=== PATIENT | male | born 1945 | race Caucasian/White ===

== ENCOUNTER → 2017-11-14 | Outpatient (CLI) | payer MEDICARE ==
[~2017-11-14] MED LIST: AMLO5 PO; Aspirin EC81 MG PO; CEPH500 PO; CHOL10002 PO; FINA5 PO; HYDR1TAB94 PO; Hair, Skin & N1 EACH PO; Humalog100 UNIT/1; INLYTA5 MG PO; INSDET100 SC; INSUASPI SC; LIDO2TG30 TOP; LISI20 PO; Lovastatin20 MG PO; METTREX2.5 PO; Novolog Fl100 UNIT/1; Novolog Fl100 UNIT/1 SC; OMEPRAZOLE MAGN20 MG PO; ONDA8 PO; OSTEO BI-FLEX1 EAC2 PO; OXYC5 PO; PANT40 PO; ROPI.25 PO; SERT50 PO; STOOL SOFTENER1 EAC2 PO; Super B-50 Com1 EAC1 PO; Sutent50 MG PO; VITAMIN D-32000 UNIT PO
[2017-11-17 14:38] LABS: Stool Occult Bld Immuno 1 Negative (NEGATIVE); Stool Occult Bld Immuno 2 Negative (NEGATIVE); Stool Occult Bld Immuno 3 Negative (NEGATIVE)
== END ==
LOC: OLS 08:35 → LAB SHORT 08:35 → LAB FUT 11-11 12:20 → EDSTATUS 11-11 12:20
PROVIDERS: Nurse Practitioner Family
DX: Z12.11 Encounter for screening for malignant neoplasm of colon (principal); R53.83 Other fatigue
CPT/HCPCS: 82274

== ENCOUNTER 2018-01-09 10:10 | Inpatient (IN) | payer MEDICARE, BC ==
[~2018-01-09] VITALS: Ht 182.9 cm; Wt 86.0 kg
[~2018-01-09 10:10] MED LIST changes: -Humalog100 UNIT/1; -PANT40 PO; -ROPI.25 PO; -SERT50 PO
[2018-01-09] MEDS ORDERED: SERT50 PO (10:34)
[2018-01-09 10:52] LABS: Mean Corpuscular HGB 28.5 pg (26.0-34.0); Mean Corpuscular HGB Conc 31.1 g/dL (31.5-36.5); Mean Corpuscular Volume 92 fL (80-100); Mean Platelet Volume 11.8 fL (9.1-12.4); NRBC ABSOLUTE 0.06 K/mm3 (0.00-0.02); NRBC Auto 0.4 /100 WBC (0.0-0.2); Platelet Count 238 K/mm3 (150-400); RDW Coefficient Variation 13.8 % (11.7-14.2); RDW Standard Deviation 43.4 fL (35.1-46.3); Red Blood Cell Count 1.79 M/mm3 (4.30-5.90); White Blood Cell Count 14.92 K/mm3 (4.00-11.30)
[2018-01-09 10:56] LABS: Hematocrit 16.4 % (37.0-53.0); Hemoglobin 5.1 g/dL (13.5-17.5)
[2018-01-09 11:11] LABS: BASOPHILS PERCENT MAN 0 % (0-2); EOSINOPHILS ABSOLUTE MAN 1.34 K/mm3 (0.00-0.68); EOSINOPHILS PERCENT MAN 9 % (0-6); International Normalized Ratio 0.97; LYMPHOCYTES ABSOLUTE MAN 3.13 K/mm3 (0.84-5.20); LYMPHOCYTES PERCENT MAN 21 % (21-46); METAMYELOCYTE ABSOLUTE MAN 0.29 K/mm3 (0.00-0.00); METAMYELOCYTE PERCENT MAN 2 % (0-0); MONOCYTES ABSOLUTE MAN 0.29 K/mm3 (0.16-1.47); MONOCYTES PERCENT MAN 2 % (4-13); NEUTROPHILS ABSOLUTE MAN 9.84 K/mm3 (1.96-9.15); Prothrombin Time Results 10.1 Sec (9.7-11.5); SEG NEUTROPHILS PERCENT MAN 66 % (41-73); TOTAL CELLS COUNTED 100
[2018-01-09 11:14] LABS: Alanine Aminotransfer (ALT/SGP 17 U/L (12-78); Albumin, Blood 2.5 g/dL (3.4-5.0); Albumin/Globulin Ratio 0.8 (0.8-1.8); Alk Phos 42 U/L (50-136); Anion Gap 9 mmol/L (6-16); Aspartate Aminotrans (AST/SGOT 10 U/L (12-37); Bilirubin, Total 0.1 mg/dL (0.1-1.0); Blood Urea Nitrogen 46 mg/dL (8-24); Bun/Creatinine Ratio 35.9 (12.0-20.0); CO2, Blood 19 mmol/L (21-32); Calcium, Blood 7.9 mg/dL (8.5-10.1); Chloride, Blood 108 mmol/L (98-108); Creatinine, Blood 1.28 mg/dL (0.60-1.20); Globulin, Blood 3.1 g/dL (2.2-4.0); Glomerular Filtration Rate 59 (60-); Glucose, Blood 330 mg/dL (70-99); Sodium, Blood 136 mmol/L (136-145); Total Protein, Blood 5.6 g/dL (6.4-8.2); Troponin I <0.015 ng/mL (0.000-0.040)
[2018-01-09] MEDS ORDERED: Humalog100 UNIT/1 (13:33)
[2018-01-09 19:29] LABS: Hematocrit 18.9 % (37.0-53.0); Hemoglobin 6.3 g/dL (13.5-17.5)
[2018-01-10 05:19] LABS: Hematocrit 23.7 % (37.0-53.0); Hemoglobin 8.1 g/dL (13.5-17.5); Mean Corpuscular HGB 28.6 pg (26.0-34.0); Mean Corpuscular HGB Conc 34.2 g/dL (31.5-36.5); Mean Platelet Volume 11.3 fL (9.1-12.4); NRBC ABSOLUTE 0.04 K/mm3 (0.00-0.02); NRBC Auto 0.3 /100 WBC (0.0-0.2); Platelet Count 201 K/mm3 (150-400); RDW Coefficient Variation 14.8 % (11.7-14.2); RDW Standard Deviation 41.9 fL (35.1-46.3); Red Blood Cell Count 2.83 M/mm3 (4.30-5.90)
[2018-01-10 05:24] LABS: Mean Corpuscular Volume 84 fL (80-100)
[2018-01-10 05:41] LABS: BAND PERCENT MAN 2 % (0-8); BASOPHILS PERCENT MAN 0 % (0-2); EOSINOPHILS ABSOLUTE MAN 0.54 K/mm3 (0.00-0.68); EOSINOPHILS PERCENT MAN 4 % (0-6); LYMPHOCYTES PERCENT MAN 14 % (21-46); METAMYELOCYTE ABSOLUTE MAN 0.13 K/mm3 (0.00-0.00); METAMYELOCYTE PERCENT MAN 1 % (0-0); MONOCYTES ABSOLUTE MAN 0.54 K/mm3 (0.16-1.47); MONOCYTES PERCENT MAN 4 % (4-13); MYELOCYTE ABSOLUTE MAN 0.13 K/mm3 (0.00-0.00); MYELOCYTE PERCENT MAN 1 % (0-0); NEUTROPHILS ABSOLUTE MAN 10.33 K/mm3 (1.96-9.15); SEG NEUTROPHILS PERCENT MAN 74 % (41-73); TOTAL CELLS COUNTED 100
[2018-01-10 05:45] LABS: Albumin, Blood 2.5 g/dL (3.4-5.0); Albumin/Globulin Ratio 0.8 (0.8-1.8); Bilirubin, Total 1.6 mg/dL (0.1-1.0); Bun/Creatinine Ratio 21.2 (12.0-20.0); Calcium, Blood 7.6 mg/dL (8.5-10.1); Creatinine, Blood 1.37 mg/dL (0.60-1.20); Potassium, Blood 3.5 mmol/L (3.5-5.5); Total Protein, Blood 5.5 g/dL (6.4-8.2)
[2018-01-11 05:01] LABS: Hematocrit 25.2 % (37.0-53.0); Hemoglobin 8.3 g/dL (13.5-17.5)
[2018-01-11] MEDS ORDERED: ROPI.25 PO (12:27)
[2018-01-11] MEDS ORDERED: PANT40 PO (12:36)
== END 2018-01-11 13:14 | disposition home or self-care (01) | DRG 378 ==
LOC: ER 10:10 → PCU 11:57 → MEDS 11:57 → PCU 13:16 → MEDS 01-10 18:00
PROVIDERS: Emergency Medicine; Internal Medicine; Internal Medicine Gastroenterology
PROC: 30233N1 Transfusion of Nonautologous Red Blood Cells into Peripheral Vein, Percutaneous Approach (ICD-10-PCS; 2018-01-09)
PROC: 0W3P8ZZ Control Bleeding in Gastrointestinal Tract, Via Natural or Artificial Opening Endoscopic (ICD-10-PCS; principal; 2018-01-10 10:00)
DX: K26.4 Chronic or unspecified duodenal ulcer with hemorrhage (principal); C64.9 Malignant neoplasm of unspecified kidney, except renal pelvis; C78.00 Secondary malignant neoplasm of unspecified lung; D50.0 Iron deficiency anemia secondary to blood loss (chronic); I12.9 Hypertensive chronic kidney disease with stage 1 through stage 4 chronic kidney disease, or unspecified chronic kidney disease; N18.3 Chronic kidney disease, stage 3 (moderate); K29.80 Duodenitis without bleeding; K29.60 Other gastritis without bleeding; K20.9 Esophagitis, unspecified; E11.22 Type 2 diabetes mellitus with diabetic chronic kidney disease
CPT/HCPCS: 36415; 36430; 71046; 80053; 81000; 82272; 82947; 83690; 84484; 85014; 85018; 85025; 85610; 85730; 86850; 86900; 86901; 86920; 93005; 93010; 96374; 99285; C9113; J1815; J1940; J7030; J7120; P9016

== ENCOUNTER → 2018-03-24 | Outpatient (CLI) | payer MEDICARE, BC ==
[~2018-03-24] MED LIST changes: +Humalog100 UNIT/1; +PANT40 PO; +ROPI.25 PO; +SERT50 PO
[2018-03-24 11:04] LABS: BASOPHILS ABSOLUTE AUTO 0.06 K/mm3 (0.00-0.23); BASOPHILS PERCENT AUTO 1 % (0-2); EOSINOPHILS ABSOLUTE AUTO 0.62 K/mm3 (0.00-0.68); EOSINOPHILS PERCENT AUTO 8 % (0-6); Hematocrit 40.4 % (37.0-53.0); IMMATURE GRAN ABSOLUTE AUTO 0.06 K/mm3 (0.00-0.10); IMMATURE GRAN PERCENT AUTO 1 % (0-1); LYMPHOCYTES ABSOLUTE AUTO 1.62 K/mm3 (0.84-5.20); LYMPHOCYTES PERCENT AUTO 22 % (21-46); MONOCYTES ABSOLUTE AUTO 0.85 K/mm3 (0.16-1.47); MONOCYTES PERCENT AUTO 11 % (4-13); Mean Corpuscular HGB 27.4 pg (26.0-34.0); Mean Corpuscular HGB Conc 32.2 g/dL (31.5-36.5); Mean Corpuscular Volume 85 fL (80-100); Mean Platelet Volume 11.3 fL (9.1-12.4); NEUTROPHILS ABSOLUTE AUTO 4.25 K/mm3 (1.96-9.15); NEUTROPHILS PERCENT AUTO 57 % (41-73); Platelet Count 229 K/mm3 (150-400); RDW Coefficient Variation 13.2 % (11.7-14.2); RDW Standard Deviation 41.1 fL (35.1-46.3); Red Blood Cell Count 4.75 M/mm3 (4.30-5.90); White Blood Cell Count 7.46 K/mm3 (4.00-11.30)
[2018-03-24 11:16] LABS: Alanine Aminotransfer (ALT/SGP 23 U/L (12-78); Albumin, Blood 3.5 g/dL (3.4-5.0); Albumin/Globulin Ratio 0.8 (0.8-1.8); Alk Phos 56 U/L (50-136); Anion Gap 8 mmol/L (6-16); Aspartate Aminotrans (AST/SGOT 15 U/L (12-37); Bilirubin, Total 0.4 mg/dL (0.1-1.0); Blood Urea Nitrogen 21 mg/dL (8-24); Bun/Creatinine Ratio 17.5 (12.0-20.0); CO2, Blood 26 mmol/L (21-32); Calcium, Blood 8.9 mg/dL (8.5-10.1); Chloride, Blood 104 mmol/L (98-108); Globulin, Blood 4.3 g/dL (2.2-4.0); Glomerular Filtration Rate >60 (60-); Glucose, Blood 242 mg/dL (70-99); Sodium, Blood 138 mmol/L (136-145); Total Protein, Blood 7.8 g/dL (6.4-8.2)
== END | disposition home or self-care (01) ==
LOC: LAB SHORT 10:44 → LAB 10:44
PROVIDERS: Internal Medicine Hematology & Oncology
DX: C64.2 Malignant neoplasm of left kidney, except renal pelvis (principal); C78.02 Secondary malignant neoplasm of left lung; C78.01 Secondary malignant neoplasm of right lung; C77.5 Secondary and unspecified malignant neoplasm of intrapelvic lymph nodes; N17.9 Acute kidney failure, unspecified
CPT/HCPCS: 80053; 85025

== ENCOUNTER 2018-12-24 14:57 | Emergency (ER) | payer MEDICARE, OTHER ==
[~2018-12-24] VITALS: Ht 182.9 cm; Wt 90.7 kg
[2018-12-24 16:49] LABS: BASOPHILS ABSOLUTE AUTO 0.06 K/mm3 (0.00-0.23); BASOPHILS PERCENT AUTO 1 % (0-2); EOSINOPHILS ABSOLUTE AUTO 0.67 K/mm3 (0.00-0.68); EOSINOPHILS PERCENT AUTO 7 % (0-6); Hematocrit 42.3 % (37.0-53.0); Hemoglobin 13.4 g/dL (13.5-17.5); IMMATURE GRAN ABSOLUTE AUTO 0.03 K/mm3 (0.00-0.10); IMMATURE GRAN PERCENT AUTO 0 % (0-1); LYMPHOCYTES ABSOLUTE AUTO 1.79 K/mm3 (0.84-5.20); LYMPHOCYTES PERCENT AUTO 18 % (21-46); MONOCYTES ABSOLUTE AUTO 0.95 K/mm3 (0.16-1.47); MONOCYTES PERCENT AUTO 10 % (4-13); Mean Corpuscular HGB 27.3 pg (26.0-34.0); Mean Corpuscular HGB Conc 31.7 g/dL (31.5-36.5); Mean Corpuscular Volume 86 fL (80-100); NEUTROPHILS ABSOLUTE AUTO 6.34 K/mm3 (1.96-9.15); NEUTROPHILS PERCENT AUTO 64 % (41-73); Platelet Count 275 K/mm3 (150-400); Red Blood Cell Count 4.91 M/mm3 (4.30-5.90); White Blood Cell Count 9.84 K/mm3 (4.00-11.30)
[2018-12-24 17:23] LABS: Albumin, Blood 3.8 g/dL (3.4-5.0); Albumin/Globulin Ratio 0.8 (0.8-1.8); Bilirubin, Total 0.3 mg/dL (0.1-1.0); Bun/Creatinine Ratio 19.3 (12.0-20.0); Calcium, Blood 8.9 mg/dL (8.5-10.1); Creatinine, Blood 1.35 mg/dL (0.60-1.20); Globulin, Blood 4.6 g/dL (2.2-4.0); Potassium, Blood 3.9 mmol/L (3.5-5.5); Total Protein, Blood 8.4 g/dL (6.4-8.2)
[2018-12-24] MEDS ORDERED: Ferrous Sulfat325 M2 PO (20:48)
[2018-12-24] MEDS ORDERED: TURMERIC500 M2 (20:50)
== END 2018-12-24 21:36 | disposition home or self-care (01) ==
LOC: ER 14:57
PROVIDERS: Physician Assistant
DX: C78.02 Secondary malignant neoplasm of left lung (principal); C78.01 Secondary malignant neoplasm of right lung; Z85.53 Personal history of malignant neoplasm of renal pelvis; Z88.1 Allergy status to other antibiotic agents; Z79.899 Other long term (current) drug therapy; Z79.4 Long term (current) use of insulin; E10.9 Type 1 diabetes mellitus without complications; Z87.891 Personal history of nicotine dependence
CPT/HCPCS: 36415; 71046; 80053; 82272; 85025; 99283-25

== ENCOUNTER → 2019-02-25 | Outpatient (CLI) | payer MEDICARE, OTHER ==
[~2019-02-25] MED LIST changes: +Ferrous Sulfat325 M2 PO; +TURMERIC500 M2
[2019-02-25 16:05] LABS: BASOPHILS ABSOLUTE AUTO 0.06 K/mm3 (0.00-0.23); BASOPHILS PERCENT AUTO 1 % (0-2); EOSINOPHILS ABSOLUTE AUTO 0.84 K/mm3 (0.00-0.68); EOSINOPHILS PERCENT AUTO 8 % (0-6); Hematocrit 40.3 % (37.0-53.0); Hemoglobin 13.4 g/dL (13.5-17.5); IMMATURE GRAN ABSOLUTE AUTO 0.08 K/mm3 (0.00-0.10); IMMATURE GRAN PERCENT AUTO 1 % (0-1); LYMPHOCYTES ABSOLUTE AUTO 1.74 K/mm3 (0.84-5.20); LYMPHOCYTES PERCENT AUTO 16 % (21-46); MONOCYTES ABSOLUTE AUTO 1.07 K/mm3 (0.16-1.47); MONOCYTES PERCENT AUTO 10 % (4-13); Mean Corpuscular HGB 27.1 pg (26.0-34.0); Mean Corpuscular HGB Conc 33.3 g/dL (31.5-36.5); Mean Corpuscular Volume 82 fL (80-100); Mean Platelet Volume 10.2 fL (9.1-12.4); NEUTROPHILS ABSOLUTE AUTO 7.23 K/mm3 (1.96-9.15); NEUTROPHILS PERCENT AUTO 66 % (41-73); Platelet Count 404 K/mm3 (150-400); RDW Coefficient Variation 12.9 % (11.7-14.2); RDW Standard Deviation 38.3 fL (35.1-46.3); Red Blood Cell Count 4.94 M/mm3 (4.30-5.90); White Blood Cell Count 11.02 K/mm3 (4.00-11.30)
[2019-02-25 16:26] LABS: Alanine Aminotransfer (ALT/SGP 17 U/L (12-78); Albumin, Blood 2.9 g/dL (3.4-5.0); Albumin/Globulin Ratio 0.5 (0.8-1.8); Alk Phos 82 U/L (40-126); Anion Gap 9 mmol/L (6-16); Aspartate Aminotrans (AST/SGOT 15 U/L (12-37); Bilirubin, Total 0.2 mg/dL (0.1-1.0); Blood Urea Nitrogen 28 mg/dL (8-24); Bun/Creatinine Ratio 16.9 (12.0-20.0); CO2, Blood 26 mmol/L (21-32); Calcium, Blood 9.3 mg/dL (8.5-10.1); Chloride, Blood 99 mmol/L (98-108); Creatinine, Blood 1.66 mg/dL (0.60-1.20); Globulin, Blood 5.3 g/dL (2.2-4.0); Glomerular Filtration Rate 41 (60-); Glucose, Blood 217 mg/dL (70-99); Potassium, Blood 3.8 mmol/L (3.5-5.5); Sodium, Blood 134 mmol/L (136-145); Total Protein, Blood 8.2 g/dL (6.4-8.2)
[2019-02-25 16:29] LABS: Troponin I <0.017 ng/mL (0.000-0.040)
== END | disposition home or self-care (01) ==
LOC: LAB EV 15:59 → LAB SHORT 15:59
PROVIDERS: Physician Assistant
DX: R07.9 Chest pain, unspecified (principal)
CPT/HCPCS: 80053; 84484; 85025

== ENCOUNTER 2019-05-22 15:40 | Inpatient (IN) | payer MEDICARE, OTHER ==
[~2019-05-22] VITALS: Ht 182.9 cm; Wt 88.0 kg
[~2019-05-22 15:40] MED LIST changes: -Humalog100 UNIT/1; +Humalog100 UNIT/1 INJ
[2019-05-22 16:06] LABS: Hematocrit 38.9 % (37.0-53.0); Hemoglobin 12.6 g/dL (13.5-17.5); Mean Corpuscular HGB 27.7 pg (26.0-34.0); Mean Corpuscular HGB Conc 32.4 g/dL (31.5-36.5); Mean Corpuscular Volume 86 fL (80-100); Mean Platelet Volume 10.4 fL (9.1-12.4); Platelet Count 250 K/mm3 (150-400); RDW Standard Deviation 61.4 fL (35.1-46.3); Red Blood Cell Count 4.55 M/mm3 (4.30-5.90); White Blood Cell Count 11.34 K/mm3 (4.00-11.30)
[2019-05-22 16:25] LABS: BAND PERCENT MAN 1 % (0-8); BASOPHILS PERCENT MAN 0 % (0-2); EOSINOPHILS ABSOLUTE MAN 0.11 K/mm3 (0.00-0.68); EOSINOPHILS PERCENT MAN 1 % (0-6); LYMPHOCYTES ABSOLUTE MAN 4.19 K/mm3 (0.84-5.20); LYMPHOCYTES PERCENT MAN 37 % (21-46); METAMYELOCYTE ABSOLUTE MAN 0.68 K/mm3 (0.00-0.00); METAMYELOCYTE PERCENT MAN 6 % (0-0); MONOCYTES ABSOLUTE MAN 0.68 K/mm3 (0.16-1.47); MONOCYTES PERCENT MAN 6 % (4-13); MYELOCYTE ABSOLUTE MAN 0.11 K/mm3 (0.00-0.00); MYELOCYTE PERCENT MAN 1 % (0-0); NEUTROPHILS ABSOLUTE MAN 5.55 K/mm3 (1.96-9.15); SEG NEUTROPHILS PERCENT MAN 48 % (41-73); TOTAL CELLS COUNTED 100
[2019-05-22 16:28] LABS: Alanine Aminotransfer (ALT/SGP 47 U/L (12-78); Albumin, Blood 3.3 g/dL (3.4-5.0); Albumin/Globulin Ratio 0.9 (0.8-1.8); Alk Phos 49 U/L (50-136); Anion Gap 8 mmol/L (6-16); Aspartate Aminotrans (AST/SGOT 31 U/L (12-37); Bilirubin, Total 0.4 mg/dL (0.1-1.0); Blood Urea Nitrogen 30 mg/dL (8-24); Bun/Creatinine Ratio 19.9 (12.0-20.0); CO2, Blood 23 mmol/L (21-32); Calcium, Blood 8.9 mg/dL (8.5-10.1); Chloride, Blood 108 mmol/L (98-108); Creatinine, Blood 1.51 mg/dL (0.60-1.20); Ethanol (Alcohol), Blood, Med <3 mg/dL; Globulin, Blood 3.7 g/dL (2.2-4.0); Glomerular Filtration Rate 49 (60-); Glucose, Blood 109 mg/dL (70-99); Potassium, Blood 4.1 mmol/L (3.5-5.5); Sodium, Blood 139 mmol/L (136-145)
[2019-05-22] MEDS ORDERED: PRED20 PO (17:22)
[2019-05-22] MEDS ORDERED: Zantac150 MG PO (17:23)
[2019-05-22] MEDS ORDERED: Lisinopril2.5 MG PO (17:23)
[2019-05-23 00:02] LABS: U Amphetamine Screen Not Detected; U Barbituate Screen Not Detected; U Benzodiazapine Screen Not Detected; U Buprenorphine Screen Not Detected; U Cannabinoids Screen Not Detected; U Cocaine Screen Not Detected; U Methadone Screen Not Detected; U Methamphetamine Screen Not Detected; U Opiates Screen DETECTED; U Oxycodone Screen Not Detected; U Phencyclidine Screen Not Detected; U Propoxyphene Screen Not Detected
--- NOTE | 2019-05-23 04:02 | NUR ---
BLOOD SUGAR OF 312 AND TRENDING DOWN PER PT'S OWN BLOOD SUGAR MACHINE. NO INSULIN GIVEN AT THIS TIME. PT NPO. RESTING COMFORTABLY IN BED. CALL LIGHT IN REACH.
--- NOTE | 2019-05-23 04:37 | NUR ---
SHIFT SUMMARY PT NEW ADMIT YESTARDAY EVENING. AAOX4. DISCOMFORT MINIMIZED WITH 50mcg FENTANYL Q3-4P. NO NAUSEA/EMESIS. RIGHT LEG PPP, DENIES N/T, MOVES TOES WELL BLE. ABRASION TO RIGHT EYE BROWN SUTURED IN ED, ABRASION TO RIGHT ELBOW WITH NON-ADHERENT DRESSINGS WITH GAUZE + KERLEX IN PLACE CHANGED X2 R/T DRAINAGE. ELEVATED BLOOD SUGAR NOTED T/O NIGHT. PT HAS OWN INSULIN PUMP + CHEMBG CHECKS, DR AWARE + OKAY WITH PT MANAGING OWN SUGAR. INSULIN PUMP DEPLETED THIS AM, NOTIFIED + ORDERS TO COVER USING PT'S OWN CHEMBG MACHINE WITH INSULIN PEN. SEE INSULIN DOCUMENTATION. PT RESTED INTERMITTENTLY THIS AM. PT ORIENTED TO CALL LIGHT USE + DEMONSTRATED USE.
[2019-05-23 04:53] LABS: Hemoglobin 11.8 g/dL (13.5-17.5); Mean Corpuscular HGB 26.8 pg (26.0-34.0); Mean Corpuscular HGB Conc 31.9 g/dL (31.5-36.5); Mean Corpuscular Volume 84 fL (80-100); Mean Platelet Volume 10.2 fL (9.1-12.4); Platelet Count 185 K/mm3 (150-400); RDW Coefficient Variation 19.8 % (11.7-14.2); Red Blood Cell Count 4.41 M/mm3 (4.30-5.90); White Blood Cell Count 13.32 K/mm3 (4.00-11.30)
[2019-05-23 05:14] LABS: Bun/Creatinine Ratio 22.1 (12.0-20.0); Calcium, Blood 8.5 mg/dL (8.5-10.1); Creatinine, Blood 1.4 mg/dL (0.60-1.20); Potassium, Blood 4.5 mmol/L (3.5-5.5)
--- NOTE | 2019-05-23 12:08 | NUR ---
URINARY RETENTION DR. COMBS NOTFIED THAT PT IS UNABLE TO COMPLETELY EMPTY HIS BLADDER. PT VOIDED 150ML AND BLADDER SCAN SHOWED A RESIDUAL OF 620ML IN THE BLADDER. PT WAS NOTIFIED OF THE AMOUNT OF URINE IN HIS BLADDER AND OPTIONS TO EMPTY BLADDER. PT REFUSED STRAIGHT CATH AND BOJORQUEZ CATHETER DESPITE RECOMMENDATION FROM DR. COMBS. WILL CONTINUE TO MONITOR.
--- NOTE | 2019-05-23 13:33 | NUR ---
PT IS CONTINUING TO RETAIN URINE. THIS RN EDUCATED ABOUT RISKS OF BLADDER REMAINING FULL. PT REPORTED UNDERSTANDING RISKS AND CONTINUES TO REFUSE CATHETER. WILL CONTINUE TO MONITOR.
--- NOTE | 2019-05-23 14:47 | NUR ---
DR. RODGERS ROUNDED ON PT. PLAN FOR SURGERY TOMORROW.
[2019-05-23 17:46] LABS: Source, Urine Catheter
[2019-05-23 17:48] LABS: Bilirubin, Urine Neg (Neg); Blood, Urine 4+ (Neg); Glucose Qualitative, Urine 4+ (Neg); Ketones, Urine 1+ (Neg); Leukocyte Esterase, Urine Neg (Neg); Nitrite, Urine Neg (Neg); Protein, Urine 2+ (Neg); Urobilinogen, Urine NORM (Normal)
--- NOTE | 2019-05-23 17:59 | NUR ---
SHIFT SUMMARY PAIN HAS BEEN MANAGED WITH FENTANYL THIS SHIFT. PLAN FOR SURGERY TOMORROW, PT WILL BE NPO AFTER MIDNIGHT. PT HAS RETAINED URINE THIS SHIFT AND AGREED TO A CATHETER THIS EVENING. VSS. WILL MONITOR UNTIL REPORT TO ONCOMING RN.
[2019-05-23 18:40] LABS: Appearance, Urine Clear (Clear); Color, Urine Yellow (P-Yellow)
[2019-05-23 18:41] LABS: Amorphous Light (0-Heavy); Bacteria Few /hpf; Squamous Epithelial Cells Not Seen /hpf (Few); White Blood Cells, Urine 0-2 /hpf (0-5)
[2019-05-24 04:52] LABS: Hematocrit 37.6 % (37.0-53.0); Hemoglobin 11.9 g/dL (13.5-17.5); Mean Corpuscular HGB 27.1 pg (26.0-34.0); Mean Corpuscular HGB Conc 31.6 g/dL (31.5-36.5); Mean Corpuscular Volume 86 fL (80-100); Platelet Count 170 K/mm3 (150-400); RDW Coefficient Variation 19.2 % (11.7-14.2); Red Blood Cell Count 4.39 M/mm3 (4.30-5.90); White Blood Cell Count 12.72 K/mm3 (4.00-11.30)
[2019-05-24 05:05] LABS: International Normalized Ratio 1.08; Prothrombin Time Results 11.4 Sec (9.7-11.5)
[2019-05-24 05:07] LABS: Anion Gap 9 mmol/L (6-16); Blood Urea Nitrogen 30 mg/dL (8-24); Bun/Creatinine Ratio 24.6 (12.0-20.0); CO2, Blood 23 mmol/L (21-32); Calcium, Blood 8.4 mg/dL (8.5-10.1); Chloride, Blood 102 mmol/L (98-108); Creatinine, Blood 1.22 mg/dL (0.60-1.20); Glomerular Filtration Rate >60 (60-); Glucose, Blood 255 mg/dL (70-99); Potassium, Blood 4.2 mmol/L (3.5-5.5); Sodium, Blood 134 mmol/L (136-145)
--- NOTE | 2019-05-24 06:36 | NUR ---
SHIFT SUMMARY HAS BEEN RESTING THROUGHOUT SHIFT. BECAME UPSET WHEN TAKEN TO X-RAY, AND THEN AGAIN TO CT THIS SHIFT. MEDICATED FOR PAIN X3 THIS SHIFT, TOLERATING WELL. REITERATED USE OF CALL AMBROSE WITH NEEDS, VOICES UNDERSTANDING. SAFETY MEASURES IN PLACE. WILL GIVE HAND OFF TO ONCOMING SHIFT USING SBAR.
--- NOTE | 2019-05-24 07:43 | NUR ---
PT CHECKED OWN GLUCOSE MONITOR READ 238. NO INSULIN BOLUS GIVEN AT THIS TIME. CARB COUNTING AND PT IS NPO. PT STABLE
--- NOTE | 2019-05-24 10:15 | NUR ---
PER DR. COMBS PT CHECKED GLUCOSE ABOUT 1005 AND READING WAS 233, BOLUS OF 2 UNITS GIVEN THROUGH PT INSULIN PUMP. ORDER TO HAVE PT CHECK GLUCOSE Q2 HRS. WILL CTM.
--- NOTE | 2019-05-24 12:57 | NUR ---
PT GLUCOSE AT 1206 IS 213, WILL MAKE MASTER FIRE CONTROL TECHNICIAN AWARE. PLAN IS FOR SURGERY AT 1315.
--- NOTE | 2019-05-24 13:07 | NUR ---
DR. COMBS MADE AWARE OF PT BLOOD GLUCOSE OF 213. PT LEFT UNIT FOR OR AT 1308.
--- NOTE | 2019-05-24 13:12 | NUR ---
BROUGHT TO [facility] ADMISSION TO UNIT STARTED BLOOD SUGAR DONE 212 WITH PATIENTS MACHINE
--- NOTE | 2019-05-24 15:05 | NUR ---
05/24/19 1505 Ellis Albert PATIENT ARRIVED TO OR WITH BOJORQUEZ CATH IN PLACE. OK TO D/C PER DR. STARKEY END OF CASE.
--- NOTE | 2019-05-24 17:52 | NUR ---
"BUILDING ESTIMATOR | DISCHARGE Report to Alida FERNANDEZ. A/O. On 2 L NC to keep sats appropiate. Other VSS. Site C/D/I. Kamran gan, ELYS, polar pack in place. Xrays done. Denies pain and nausea. Tolerating PO ice chips. OR dc'ed Link in OR. Bladder scanned patient with 30 mL showing on scanner. Advised Alida FERNANDEZ to rescan per her nursing judgement. Post-op sugar relayed to Dr. Bolaños. Dr. Bolaños denied need to treat blood sugar. No issues. Taken to floor via bed by this RN. All questions answered to best knowlede."
--- NOTE | 2019-05-24 19:17 | NUR ---
PT TOOK OWN BLOOD GLUCOSE AT 1911, BOOD SUGAR READ 268. PT CARB COUNTED DINNER (50 CARBS) AND GAVE SELF 5.7 UNITS THROUGH INSULIN PUMP. WILL MAKE NOC RN AWARE.
--- NOTE | 2019-05-24 19:20 | NUR ---
POST OP: REPORT RECIEVED FROM COMMUNICATIONS BILLING ANALYSTOMID FERNANDEZ. PT BACK TO SURGICAL UNIT AT ABOUT 1748. UPON ASSESSMENT PT IS IN NO VISABLE DISTRESS. A/O, VSS. PT DENIES PAIN. SURGICAL SITE WNL. PT ABLE TO EAT AND DRINK, NO N/V. NO VOID AT THIS TIME, BLADDER SCAN SHOWED 22ML. REGULAR TRAY ORDERED FOR DINNER. WILL PASS REPORT TO TESSIE FERNANDEZ.
--- NOTE | 2019-05-24 21:09 | NUR ---
BGL 287, EATING JELLO, GIVING 5.075 UNITS GIVEN PER INSULIN PUMP WIZARD.
--- NOTE | 2019-05-25 | NUR ---
BEDTIME SNACK OF 60 CARBS AND BGL 236, CALCULATION BY INSULIN PUMP WIZARD IS FOR 13.025 UNITS.
--- NOTE | 2019-05-25 04:00 | NUR ---
BGL 233
--- NOTE | 2019-05-25 06:07 | NUR ---
AMBULATED TO BATHROOM WITH MINIMAL ASSISTANCE USING FWW, TOLERATED WELL. HAS MADE ADEQUATE URINE THIS SHIFT. IVF SL AT THIS TIME. PRN PO PAIN MEDS ADMINISTERED X1 THIS SHIFT. DENIES FURTHER NEEDS AT THIS TIME. SAFETY MEASURES IN PLACE. WILL GIVE HAND OFF TO ONCOMING SHIFT USING SBAR.
--- NOTE | 2019-05-25 06:35 | NUR ---
SHIFT SUMMARY HAS BEEN RESTING THROUGHOUT SHIFT. AGAIN TO CT THIS SHIFT. MEDICATED FOR PAIN X3 THIS SHIFT, TOLERATING WELL. REITERATED USE OF CALL AMBROSE WITH NEEDS, VOICES UNDERSTANDING. SAFETY MEASURES IN PLACE. WILL GIVE HAND OFF TO ONCOMING SHIFT USING SBAR.
[2019-05-25 06:42] LABS: BASOPHILS ABSOLUTE AUTO 0.02 K/mm3 (0.00-0.23); BASOPHILS PERCENT AUTO 0 % (0-2); EOSINOPHILS ABSOLUTE AUTO 0.16 K/mm3 (0.00-0.68); EOSINOPHILS PERCENT AUTO 2 % (0-6); Hematocrit 30.6 % (37.0-53.0); Hemoglobin 9.5 g/dL (13.5-17.5); IMMATURE GRAN ABSOLUTE AUTO 0.12 K/mm3 (0.00-0.10); IMMATURE GRAN PERCENT AUTO 2 % (0-1); LYMPHOCYTES ABSOLUTE AUTO 1.07 K/mm3 (0.84-5.20); LYMPHOCYTES PERCENT AUTO 14 % (21-46); MONOCYTES PERCENT AUTO 8 % (4-13); Mean Corpuscular HGB 27.3 pg (26.0-34.0); Mean Corpuscular Volume 88 fL (80-100); Mean Platelet Volume 11.2 fL (9.1-12.4); NEUTROPHILS ABSOLUTE AUTO 5.92 K/mm3 (1.96-9.15); NEUTROPHILS PERCENT AUTO 75 % (41-73); Platelet Count 143 K/mm3 (150-400); RDW Coefficient Variation 19.1 % (11.7-14.2); RDW Standard Deviation 60.7 fL (35.1-46.3); Red Blood Cell Count 3.48 M/mm3 (4.30-5.90); White Blood Cell Count 7.89 K/mm3 (4.00-11.30)
[2019-05-25 06:53] LABS: Bun/Creatinine Ratio 23.4 (12.0-20.0); Calcium, Blood 7.8 mg/dL (8.5-10.1); Creatinine, Blood 1.75 mg/dL (0.60-1.20); Potassium, Blood 4.9 mmol/L (3.5-5.5)
--- NOTE | 2019-05-25 12:00 | NUR ---
blood sugar 237 patients carbspatient self administered 7 units insulin via insulin pump
--- NOTE | 2019-05-25 14:34 | NUR ---
0769 patient declines to wear elsie hose or pas patient educated on reasons that pas and elsie have been ordered for dvt prevention. patient continues to decline
--- NOTE | 2019-05-25 17:48 | NUR ---
SUMMARY PATIENT REPORTS PAIN CURRENTLY 2/10 DENIES NEED FOR PAIN MEDICATION. PATIENT DECLINES POLAR PACK TO RIGHT HIP, CONTINUES TO DECLINE PATRICIO HOSE AND PAS. DRESSING TO RIGHT ELBOW WITH SOME DARK SHADOWING BUT NO VISIBLE DRAINAGE. PATIENT STANDBY ASSIST OOB.
--- NOTE | 2019-05-26 09:37 | NUR ---
DR COMBS HERE TO SEE PT. PT ON 2LO2NC AT 94%, ON ROOM AIR PT 84%.COUGH DEEP BREATH ENCOURAGED, I/S GIVEN. PT DEMONSTRATES WELL. PT O2 BACK TO 2LO2NC 95%.
--- NOTE | 2019-05-26 15:19 | NUR ---
PT BEEN WORKING WITH THERAPY WITH O2 IN PLACE DURING WALK IN HALLWAY.
--- NOTE | 2019-05-26 16:57 | NUR ---
SHIFT SUMMARY PT EATING AND DRINKING, VOIDING. PASSING GAS. PT DID NOT HAVE BM TODAY BUT WISHED TO WAIT AND NOT HAVE MIRALAX TODAY COFFEE USUALLY WORKS FOR HIM. PT WORKED WITH THERAPY TODAY. PT BEEN USING I/S AND IS NOW ON RA. PT USING CALL LIGHT APPR. FAMILY IN/OUT OF ROOM TODAY.
[2019-05-27 04:27] LABS: BASOPHILS ABSOLUTE AUTO 0.02 K/mm3 (0.00-0.23); BASOPHILS PERCENT AUTO 0 % (0-2); EOSINOPHILS ABSOLUTE AUTO 0.18 K/mm3 (0.00-0.68); EOSINOPHILS PERCENT AUTO 2 % (0-6); Hematocrit 29.8 % (37.0-53.0); Hemoglobin 9.6 g/dL (13.5-17.5); IMMATURE GRAN ABSOLUTE AUTO 0.21 K/mm3 (0.00-0.10); IMMATURE GRAN PERCENT AUTO 2 % (0-1); LYMPHOCYTES ABSOLUTE AUTO 1.16 K/mm3 (0.84-5.20); LYMPHOCYTES PERCENT AUTO 12 % (21-46); MONOCYTES ABSOLUTE AUTO 0.77 K/mm3 (0.16-1.47); MONOCYTES PERCENT AUTO 8 % (4-13); Mean Corpuscular HGB Conc 32.2 g/dL (31.5-36.5); Mean Platelet Volume 10.9 fL (9.1-12.4); NEUTROPHILS ABSOLUTE AUTO 7.17 K/mm3 (1.96-9.15); NEUTROPHILS PERCENT AUTO 75 % (41-73); Platelet Count 186 K/mm3 (150-400); RDW Coefficient Variation 18.7 % (11.7-14.2); RDW Standard Deviation 56.9 fL (35.1-46.3); Red Blood Cell Count 3.56 M/mm3 (4.30-5.90); White Blood Cell Count 9.51 K/mm3 (4.00-11.30)
[2019-05-27 04:32] LABS: Mean Corpuscular Volume 84 fL (80-100)
[2019-05-27 04:49] LABS: Bun/Creatinine Ratio 25.4 (12.0-20.0); Calcium, Blood 8.6 mg/dL (8.5-10.1); Creatinine, Blood 1.34 mg/dL (0.60-1.20); Potassium, Blood 4.5 mmol/L (3.5-5.5)
[2019-05-27] MEDS ORDERED: HYDR1TAB94 PO (16:57)
[2019-05-27] MEDS ORDERED: ACET325 PO (16:59)
[2019-05-27] MEDS ORDERED: DOCU100 PO (16:59)
[2019-05-27] MEDS ORDERED: XARELTO15 MG PO (17:00)
--- NOTE | 2019-05-27 17:54 | NUR ---
PT D/C TO HOME WITH HIS VIA PRIVATE VEHICLE. D/C PAPERWORK & RX PROVIDED. PERSONAL BELONGINGS WERE SENT WITH THE PT. PT ENC TO F/U SARA FOR ANY PROBLEMS OR CONCERNS.
== END 2019-05-27 17:36 | disposition home health service (06) | DRG 956 ==
LOC: ER 15:40 → SURS 17:50
PROVIDERS: Emergency Medicine; Internal Medicine Endocrinology, Diabetes & Metabolism; Orthopaedic Surgery; ADMIT Internal Medicine
PROC: 0HQ1XZZ Repair Face Skin, External Approach (ICD-10-PCS; 2019-05-22)
PROC: 0HQDXZZ Repair Right Lower Arm Skin, External Approach (ICD-10-PCS; 2019-05-22)
PROC: 0SRR0J9 Replacement of Right Hip Joint, Femoral Surface with Synthetic Substitute, Cemented, Open Approach (ICD-10-PCS; principal; 2019-05-24 14:00)
DX: S72.001A Fracture of unspecified part of neck of right femur, initial encounter for closed fracture (principal); S32.591A Other specified fracture of right pubis, initial encounter for closed fracture; C64.2 Malignant neoplasm of left kidney, except renal pelvis; E27.49 Other adrenocortical insufficiency; S32.511A Fracture of superior rim of right pubis, initial encounter for closed fracture; D62 Acute posthemorrhagic anemia; W11.XXXA Fall on and from ladder, initial encounter; Y93.9 Activity, unspecified; Y92.008 Other place in unspecified non-institutional (private) residence as the place of occurrence of the external cause; Z79.4 Long term (current) use of insulin; Z90.79 Acquired absence of other genital organ(s); Z90.5 Acquired absence of kidney; Z87.891 Personal history of nicotine dependence; N18.3 Chronic kidney disease, stage 3 (moderate); E16.2 Hypoglycemia, unspecified; Z92.21 Personal history of antineoplastic chemotherapy; E10.22 Type 1 diabetes mellitus with diabetic chronic kidney disease; S01.111A Laceration without foreign body of right eyelid and periocular area, initial encounter; E10.42 Type 1 diabetes mellitus with diabetic polyneuropathy; K21.9 Gastro-esophageal reflux disease without esophagitis; E78.5 Hyperlipidemia, unspecified; F32.9 Major depressive disorder, single episode, unspecified; S51.011A Laceration without foreign body of right elbow, initial encounter; E66.3 Overweight; Z68.26 Body mass index [BMI] 26.0-26.9, adult; E10.65 Type 1 diabetes mellitus with hyperglycemia
CPT/HCPCS: 12002; 12011; 36415; 70450; 71045; 72170; 72192; 73080; 73502; 73552; 76377; 80048; 80053; 81001; 82947; 85025; 85027; 85610; 86850; 86900; 86901; 88305; 88311; 90471; 90714; 93005; 93010; 96374-59; 96375-59; 97110; 97116; 97161; 97165; 97530; 97535; 99285-25; A9270; A9270-GY; C1713; C1776; G0480; J0171; J0735; J1170; J1650; J1720; J1885; J2060; J2250; J2405; J2704; J2795; J3010; J7030; J7120; J7512; J7799

== ENCOUNTER 2019-06-03 10:02 | Day surgery (SDC) | payer MEDICARE, OTHER ==
[~2019-06-03 10:02] MED LIST changes: +ACET325 PO; +DOCU100 PO; +Lisinopril2.5 MG PO; +PRED20 PO; +XARELTO15 MG PO; +Zantac150 MG PO
--- NOTE | 2019-06-03 11:36 | NUR ---
FROM RADIOLOGY TO STEP AWAKE ORIENTED GIVEN JUICE AT THIS TIME
--- NOTE | 2019-06-03 13:53 | NUR ---
Patient up to Ambulate independently. Gait steady. Discharge instructions reviewed with patient. Patient verbalizes understanding. Copy given to patient to take home. Patient States Post-Procedure ride home has been arranged. Discharged via wheelchair to private car for ride home.
== END 2019-06-04 00:11 | disposition home or self-care (01) ==
LOC: CT 10:02
DX: C34.11 Malignant neoplasm of upper lobe, right bronchus or lung (principal); C64.2 Malignant neoplasm of left kidney, except renal pelvis; E11.9 Type 2 diabetes mellitus without complications; I10 Essential (primary) hypertension; E78.5 Hyperlipidemia, unspecified
CPT/HCPCS: 32405; 71045; 77012; 88305; 88341; 88342

== ENCOUNTER → 2019-06-13 | Outpatient (CLI) | payer MEDICARE, OTHER ==
[2019-06-13 11:47] LABS: Automated BF RBC Count 0.059 M/mm3 (0-0); Body Fluid WBC Count 1230 /mm3 (0-999); RBC Count, Body Fluid 59000 /mm3 (0-0)
[2019-06-13 12:41] LABS: Color, Body Fluid Amber (None-Yellow); Total Cell Count, Body Fluid 100
[2019-06-13 12:42] LABS: Appearance, Body Fluid Cloudy (Clear)
== END | disposition home or self-care (01) ==
LOC: LAB 10:47 → LAB SHORT 10:47
PROVIDERS: Orthopaedic Surgery
DX: S72.041A Displaced fracture of base of neck of right femur, initial encounter for closed fracture (principal)
CPT/HCPCS: 87070; 87075; 87205; 89051

== ENCOUNTER 2021-01-08 07:54 | Day surgery (SDC) | payer MEDICARE ==
[~2021-01-08] VITALS: Ht 182.9 cm; Wt 92.8 kg
[2021-01-08] MEDS ORDERED: CABOMETYX60 MG PO (08:31)
[2021-01-08] MEDS ORDERED: ZOLOFT50 MG PO (08:31)
--- NOTE | 2021-01-08 08:58 | NUR ---
01/08/[address] NOTIFIED OF 351 CBG. PT IS NORMALLY ON INDULIN PUMP BUT STOPPED IT FOR PROCEDURE YESTERDAY. PT VIRAL TREAT CBG OF 70 THIS AM WITH GLUCOSE. DR. DUONG OK TO PROCEED WITHOUT INTERVENTION.
--- NOTE | 2021-01-08 10:55 | NUR ---
01/08/21 1055 Cait Carpenter DISCUSSED DISCHARGE INSTRUCTIONS WITH PATIENT. ALL QUESTIONS ANSWERED. TOLERATING PO FLUIDS WELL. NO COMPLAINTS OF ABDOMINAL PAIN OR NAUSEA. VSS.
== END 2021-01-08 10:46 | disposition home or self-care (01) ==
LOC: ORSCSDS 07:54
PROVIDERS: Surgery
PROC: 0DJD8ZZ Inspection of Lower Intestinal Tract, Via Natural or Artificial Opening Endoscopic (ICD-10-PCS; principal; 2021-01-08 09:00)
DX: Z12.11 Encounter for screening for malignant neoplasm of colon (principal); Z86.010 Personal history of colon polyps; E11.9 Type 2 diabetes mellitus without complications; E78.5 Hyperlipidemia, unspecified; I10 Essential (primary) hypertension; Z87.891 Personal history of nicotine dependence; Z79.01 Long term (current) use of anticoagulants; Z79.4 Long term (current) use of insulin; Z79.899 Other long term (current) drug therapy
CPT/HCPCS: 82947; J2704; J7120

== ENCOUNTER 2021-06-29 19:07 | Inpatient (IN) | payer MEDICARE ==
[~2021-06-29] VITALS: Ht 182.9 cm; Wt 90.2 kg
[~2021-06-29 19:07] MED LIST changes: +CABOMETYX60 MG PO; +ZOLOFT50 MG PO
[2021-06-29 19:55] LABS: BASOPHILS ABSOLUTE AUTO 0.08 K/mm3 (0.00-0.23); BASOPHILS PERCENT AUTO 1 % (0-2); EOSINOPHILS ABSOLUTE AUTO 0.27 K/mm3 (0.00-0.68); EOSINOPHILS PERCENT AUTO 2 % (0-6); Hematocrit 49.6 % (37.0-53.0); Hemoglobin 15.9 g/dL (13.5-17.5); IMMATURE GRAN ABSOLUTE AUTO 0.08 K/mm3 (0.00-0.10); IMMATURE GRAN PERCENT AUTO 1 % (0-1); LYMPHOCYTES ABSOLUTE AUTO 2.75 K/mm3 (0.84-5.20); LYMPHOCYTES PERCENT AUTO 23 % (21-46); MONOCYTES ABSOLUTE AUTO 1.45 K/mm3 (0.16-1.47); MONOCYTES PERCENT AUTO 12 % (4-13); Mean Corpuscular HGB 26.3 pg (26.0-34.0); Mean Corpuscular HGB Conc 32.1 g/dL (31.5-36.5); Mean Corpuscular Volume 82 fL (80-100); Mean Platelet Volume 10.6 fL (9.1-12.4); NEUTROPHILS ABSOLUTE AUTO 7.41 K/mm3 (1.96-9.15); NEUTROPHILS PERCENT AUTO 62 % (41-73); Platelet Count 367 K/mm3 (150-400); Red Blood Cell Count 6.04 M/mm3 (4.30-5.90); White Blood Cell Count 12.04 K/mm3 (4.00-11.30)
[2021-06-29 20:20] LABS: Alanine Aminotransfer (ALT/SGP 19 U/L (12-78); Albumin, Blood 2.3 g/dL (3.4-5.0); Albumin/Globulin Ratio 0.5 (0.8-1.8); Alk Phos 82 U/L (50-136); Anion Gap 7 mmol/L (6-16); Aspartate Aminotrans (AST/SGOT 22 U/L (12-37); Bilirubin, Total 0.4 mg/dL (0.1-1.0); Blood Urea Nitrogen 18 mg/dL (8-24); Bun/Creatinine Ratio 14.2 (12.0-20.0); CO2, Blood 22 mmol/L (21-32); Chloride, Blood 104 mmol/L (98-108); Creatinine, Blood 1.27 mg/dL (0.60-1.20); Globulin, Blood 4.7 g/dL (2.2-4.0); Glomerular Filtration Rate 55 (60-); Glucose, Blood 224 mg/dL (70-99); Potassium, Blood 4.5 mmol/L (3.5-5.5); Sodium, Blood 133 mmol/L (136-145); Troponin I <0.015 ng/mL (0.000-0.040)
[2021-06-29 21:14] LABS: SARS-Cov-2 (COVID-19) PCR, MMC NEGATIVE (NEGATIVE)
[2021-06-30] MEDS ORDERED: XARELTO20 MG PO (02:02)
--- NOTE | 2021-06-30 04:35 | NUR ---
PATIENT NEWLY ADMITTED TO UNIT. 3 LITERS OF OXYGEN VIA NASAL CANNULA. HAS A SELF ADMINISTERING INSULIN PUMP. DEVICE THAT SELF CHECKS BG IS NOT OPERATING AT THIS TIME. BRUSHING MACHINE OPERATOR WILL CHECK WITH HOSPITAL GLUCOMTER. DENIES PAIN. DENIES NAUSEA. NO VISIBLE SIGNS OF ANY DISTRESS PRESENT. ALERT AND ORIENTED X4. STANDBY ASSISTANCE OUT OF BED WHEN NEEDED.
[2021-06-30 04:59] LABS: BASOPHILS ABSOLUTE AUTO 0.05 K/mm3 (0.00-0.23); BASOPHILS PERCENT AUTO 1 % (0-2); EOSINOPHILS ABSOLUTE AUTO 0.24 K/mm3 (0.00-0.68); EOSINOPHILS PERCENT AUTO 3 % (0-6); Hematocrit 46.5 % (37.0-53.0); Hemoglobin 14.7 g/dL (13.5-17.5); IMMATURE GRAN ABSOLUTE AUTO 0.08 K/mm3 (0.00-0.10); IMMATURE GRAN PERCENT AUTO 1 % (0-1); LYMPHOCYTES ABSOLUTE AUTO 1.36 K/mm3 (0.84-5.20); LYMPHOCYTES PERCENT AUTO 14 % (21-46); MONOCYTES ABSOLUTE AUTO 1.25 K/mm3 (0.16-1.47); MONOCYTES PERCENT AUTO 13 % (4-13); Mean Corpuscular HGB 26.3 pg (26.0-34.0); Mean Corpuscular HGB Conc 31.6 g/dL (31.5-36.5); Mean Corpuscular Volume 83 fL (80-100); NEUTROPHILS ABSOLUTE AUTO 6.44 K/mm3 (1.96-9.15); NEUTROPHILS PERCENT AUTO 69 % (41-73); Platelet Count 277 K/mm3 (150-400); RDW Coefficient Variation 14.8 % (11.7-14.2); RDW Standard Deviation 44.5 fL (35.1-46.3); White Blood Cell Count 9.42 K/mm3 (4.00-11.30)
[2021-06-30 05:29] LABS: Albumin/Globulin Ratio 0.5 (0.8-1.8); Bilirubin, Total 0.4 mg/dL (0.1-1.0); Bun/Creatinine Ratio 14.3 (12.0-20.0); Calcium, Blood 9.5 mg/dL (8.5-10.1); Creatinine, Blood 1.26 mg/dL (0.60-1.20); Globulin, Blood 4.2 g/dL (2.2-4.0); Potassium, Blood 4.2 mmol/L (3.5-5.5); Total Protein, Blood 6.2 g/dL (6.4-8.2)
[2021-06-30 08:16] LABS: International Normalized Ratio 1.09; Prothrombin Time Results 11.7 Sec (9.7-11.5)
--- NOTE | 2021-06-30 12:17 | NUR ---
PT DOES NOT WANT TO HAVE CBG COMPLETED AND WANTS TO DELIVER HIS OWN INSULIN WITH HIS INSULIN PUMP. HE HAS [facility]INUOS GLUCOMETER IN [facility]. DR. COMBS NOTIFIED. PER DR. COMBS NURSING TO CHECK CBG VIA FINGERSTICK TWICE DAILY SO PT CAN CALIBRATE MACHINE. OKAY FOR PT TO GIVE INSULIN VIA INSULIN PUMP.
--- NOTE | 2021-06-30 12:59 | NUR ---
PER DR. COMBS HE GAVE PT 2.4 UNITS OF INSULIN VIA INSULIN PUMP.
[2021-06-30 14:26] LABS: pH, Body Fluid 7.5
[2021-06-30 14:30] LABS: Automated BF WBC Count 0.909 K/mm3 (0-999); Body Fluid WBC Count 909 /mm3 (0-999); RBC Count, Body Fluid 10000 /mm3 (0-0)
[2021-06-30 14:48] LABS: Albumin, Body Fluid 1.6 g/dL; Lactate Dehydrogenase, Body Fl 247 U/L; Protein, Body Fluid 3.8 g/dL
--- NOTE | 2021-06-30 15:15 | NUR ---
LATE ENTRY: ASSUMED CARE OF PT AT 1440. REPORT RECEIVED FROM TJ FERNANDEZ IN PCU. PT TX TO ROOM 308-2 VIA GURNEY. PT CONNECTED TO BIPAP WITH SETTINGS 12/8 FIO2 AT 30%. PT PLEASANT COOPERATIVE AND ABLE TO ANSWER QUESTIONS APPROP. PT ORIENTED TO MEDICAL FLOOR/CALL LIGHT. BED IN LOW POSITION AND ALARM ON.
[2021-06-30 16:31] LABS: Total Cell Count, Body Fluid 100
[2021-06-30 16:40] LABS: Appearance, Body Fluid Hazy (Clear); Color, Body Fluid Yellow (None-Yellow)
--- NOTE | 2021-06-30 17:16 | NUR ---
PT GLUCOMETER READING WAS 273. PER PT ONCE DINNER ARRIVES HE WILL COMPLETE CARB COUND AND GIVE HIMSELF INSULIN FROM HIS PUMP. HE WILL LET ME KNOW HOW MUCH INSULIN HE GIVES.
--- NOTE | 2021-06-30 17:36 | NUR ---
PT CARB COUNT WAS 35. HE ENTERED THIS INTO GLUCOMETER AND READOUT WAS TO GIVE BOLUS OF 12.5 UNITS WHICH HE COMPLETED WITH INSULIN PUMP. THIS RN SUPERVISED PT COMPLETING THE BOLUS.
--- NOTE | 2021-06-30 18:36 | NUR ---
SHIFT SUMMARY: PT A/O X 3, STANDBY ASSIST WITH TX. PT ON 4 LPM VIA NC. PT HAD THORACENTESIS TODAY ON RLL AND TOLERATED WELL. PT DENIED PAIN POST THORACENTESIS. PT GIVING SELF BOLUS INSULIN WITH THIS RN SUPERVISING.
--- NOTE | 2021-06-30 20:30 | NUR ---
at 2029, cbg on hospital monitor was 287. patient checked cbg on own monitor and was 280. to determine amount of insulin he would have delivered from pump, and 39 grams carbs for 12 oz of Lisbeth Mist. PATIENT programmed pump to deliver 13 UNITS OF REGULAR INSULIN from his own pump at 2034.
--- NOTE | 2021-07-01 04:02 | NUR ---
PATIENT AWAKE AND ALERT TIMES 3-4. HAS MANAGED HIS BLOOD GLUCOSE TREATMENT WITH ONLY MINIMAL PROBLEMS (mostly with knowledge of diet). no complaints of SOB noted. able to titrate 02 from 4liters to 3 liters high flow Nasal Canula. no other changes notes
--- NOTE | 2021-07-01 09:04 | NUR ---
PT BS THIS AM WAS 283. PT ATE 63 CARBS. INSULIN PUMP GAVE BOLUS OF 23.2 UNITS. PT SUPERVISED USING HIS INSULIN PUMP.
--- NOTE | 2021-07-01 10:52 | NUR ---
HOME O2 EVALUATION: PT SATS ON ROOM AIR AT REST WAS 87%. WHILE AMBULATING PT SATS WERE 84% AND PT VERY DYSPNEIC. PT SATS ON 4LPM VIA NC WAS 94% AT REST WAS 94%. PT SATS ON 4 LPM WHILE AMBULATING WAS 96%.
[2021-07-01] MEDS ORDERED: PRED10 PO (13:44)
--- NOTE | 2021-07-01 16:45 | NUR ---
STRUCTURAL STEEL PAINTER/EMERY WHEEL MOLDER REFERRAL - ADMIT: 06/30/21 DISCHARGE: 07/01/21 DX: HYPOXIA CC: WEN KENDRA CALL: [phone] RESIDENCE: HOME WITH SPOUSE EMERGENCY CONTACT: LOUISE MCNLALY, SPOUSE / PARTNER, DX:CKD-STAGE 3, GERD, HTN, DM-TYPE 1, SEE LIST DME: DM SUPPLIES CCM: NONE HOME HEALTH: [facility]- 2019 SUMMARY: (ADMIT: 06/30/21) 07/01/21-PT IS GOING HOME TODAY WILL NEED HOME O2 AND WHEELCHAIR. -TIFFANIEB
--- NOTE | 2021-07-01 18:21 | NUR ---
DISCHARGE NOTE: DISCUSSED AND EDUCATED PT ON DISCHARGE INSTRUCTIONS AND EDUCATION. PT VU. IV REMOVED AND PT ASSISTED WITH CHANGING INTO PERSONAL CLOTHES. PT HAD O2 DELIVERED AND PT EDUCATED ON O2 USE. PT BELONGINGS INCLUDING HIS GLUCOMETER, PHONE AND INSULIN VIAL HIS DROPPED OFF EARLIER PACKED UP AND GIVEN TO PT ON DISCHARGE. PT ESCORTED VIA WHEELCHAIR TO POV BY BEVERLY JENSEN.
== END 2021-07-01 17:05 | disposition home or self-care (01) | DRG 189 ==
LOC: ER 19:07 → MEDS 19:08 → ENPENDDIS 07-01 12:13 → MEDS 07-01 17:05
PROVIDERS: Emergency Medicine; Internal Medicine Endocrinology, Diabetes & Metabolism; ADMIT Internal Medicine
PROC: 0W993ZZ Drainage of Right Pleural Cavity, Percutaneous Approach (ICD-10-PCS; principal; 2021-06-30)
DX: J96.01 Acute respiratory failure with hypoxia (principal); E27.3 Drug-induced adrenocortical insufficiency; J91.0 Malignant pleural effusion; I12.9 Hypertensive chronic kidney disease with stage 1 through stage 4 chronic kidney disease, or unspecified chronic kidney disease; Z20.822 Contact with and (suspected) exposure to COVID-19; E10.22 Type 1 diabetes mellitus with diabetic chronic kidney disease; E10.42 Type 1 diabetes mellitus with diabetic polyneuropathy; N18.30 Chronic kidney disease, stage 3 unspecified; K21.9 Gastro-esophageal reflux disease without esophagitis; E78.5 Hyperlipidemia, unspecified; F32.9 Major depressive disorder, single episode, unspecified; Z90.5 Acquired absence of kidney; Z79.4 Long term (current) use of insulin; Z79.899 Other long term (current) drug therapy; Z88.1 Allergy status to other antibiotic agents; Z79.52 Long term (current) use of systemic steroids; Z98.890 Other specified postprocedural states; Z85.528 Personal history of other malignant neoplasm of kidney
CPT/HCPCS: 32555; 36415; 71045; 71260; 80053; 82024; 82042; 82533; 82947; 83615; 83880; 83986; 84157; 84484; 85025; 85379; 85610; 85730; 87070; 87205; 88108; 88305; 88342; 89051; 93005; 93010; 96374-59; 96375; 99285-25; A9270; G0378; J1650; J2405; J2920; J7512; Q9967; U0004

== ENCOUNTER 2021-07-05 17:11 | Inpatient (IN) | payer MEDICARE ==
[~2021-07-05] VITALS: Ht 182.9 cm; Wt 88.9 kg
[~2021-07-05 17:11] MED LIST changes: +PRED10 PO; +XARELTO20 MG PO
[2021-07-05 18:10] LABS: BASOPHILS ABSOLUTE AUTO 0.05 K/mm3 (0.00-0.23); BASOPHILS PERCENT AUTO 0 % (0-2); EOSINOPHILS ABSOLUTE AUTO 0.01 K/mm3 (0.00-0.68); EOSINOPHILS PERCENT AUTO 0 % (0-6); Hematocrit 51.6 % (37.0-53.0); Hemoglobin 16.4 g/dL (13.5-17.5); IMMATURE GRAN PERCENT AUTO 1 % (0-1); LYMPHOCYTES ABSOLUTE AUTO 1.48 K/mm3 (0.84-5.20); LYMPHOCYTES PERCENT AUTO 10 % (21-46); MONOCYTES ABSOLUTE AUTO 1.59 K/mm3 (0.16-1.47); MONOCYTES PERCENT AUTO 10 % (4-13); Mean Corpuscular HGB 26.1 pg (26.0-34.0); Mean Corpuscular HGB Conc 31.8 g/dL (31.5-36.5); Mean Corpuscular Volume 82 fL (80-100); Mean Platelet Volume 10.9 fL (9.1-12.4); NEUTROPHILS ABSOLUTE AUTO 11.93 K/mm3 (1.96-9.15); NEUTROPHILS PERCENT AUTO 78 % (41-73); Platelet Count 387 K/mm3 (150-400); RDW Coefficient Variation 14.9 % (11.7-14.2); RDW Standard Deviation 44.4 fL (35.1-46.3); Red Blood Cell Count 6.28 M/mm3 (4.30-5.90); White Blood Cell Count 15.26 K/mm3 (4.00-11.30)
[2021-07-05 18:59] LABS: Alanine Aminotransfer (ALT/SGP 21 U/L (12-78); Albumin, Blood 2.5 g/dL (3.4-5.0); Albumin/Globulin Ratio 0.5 (0.8-1.8); Alk Phos 94 U/L (50-136); Anion Gap 8 mmol/L (6-16); Aspartate Aminotrans (AST/SGOT 22 U/L (12-37); Bilirubin, Total 0.6 mg/dL (0.1-1.0); Blood Urea Nitrogen 21 mg/dL (8-24); Bun/Creatinine Ratio 18.3 (12.0-20.0); CO2, Blood 23 mmol/L (21-32); Calcium, Blood 9.7 mg/dL (8.5-10.1); Chloride, Blood 99 mmol/L (98-108); Creatinine, Blood 1.15 mg/dL (0.60-1.20); Globulin, Blood 4.9 g/dL (2.2-4.0); Glomerular Filtration Rate >60 (60-); Glucose, Blood 370 mg/dL (70-99); Potassium, Blood 4.8 mmol/L (3.5-5.5); Sodium, Blood 130 mmol/L (136-145); Total Protein, Blood 7.4 g/dL (6.4-8.2); Troponin I <0.015 ng/mL (0.000-0.040)
[2021-07-06 00:22] LABS: SARS-Cov-2 (COVID-19) PCR, MMC NEGATIVE (NEGATIVE)
--- NOTE | 2021-07-06 01:38 | NUR ---
ASSUMPTION OF CARE PT ARRIVED TO MEDICAL UNIT AT 0045 ESCORTED BY [employer] SCIENCE TECHNICAL OFFICER VIA PERSONAL WHEELCHAIR FROM HOME. PT HAD A WEAK GAIT BUT WAS TRANSFERRED FROM TO MEDICAL BED WITH ASSISTANCE FROM TWO STAFF MEMBERS. HE IS ON 4LPM OXYGEN VIA NC, WHICH IS HIS BASELINE AT HOME. C/O PAIN TO HIS LUNGS AND CHEST, RATING 6/10. TREATED WITH PRN MEDICATION PER EMAR. PT IS INDEPENDENT WITH URINAL. SKIN ECCHYMOTIC TO BILAT UPPER EXTREMITIES. HAS CGM IN HIS RIGHT DELTOID AND [employer] INSULIN PUMP IN HIS LLQ ABD. BREATH SOUNDS CLEAR ON LEFT SIDE, WITH DIMINISHED ON THE RIGHT. ORIENTED TO ROOM. BED IN LOWEST POSITION, CALL LIGHT WITHIN REACH. WILL CONTINUE TO MONITOR.
--- NOTE | 2021-07-06 02:50 | NUR ---
PHONE CALL TO DR. MURDOCK PLACED PHONE CALL WITH REQUEST FOR PRN ANXIETY MEDICATION. PT DEMONSTRATED ANXIETY UPON ADMISSION TO MEDICAL UNIT R/T FUTURE PLAN OF CARE, PAIN, SOB, WEAKNESS. DR. MURDOCK WITH ORDERS FOR PRN ANXIETY 0.5 MG BID PRN. ORDERS UPDATED.
--- NOTE | 2021-07-06 03:56 | NUR ---
SURGICAL CONSULT RN PLACED CALL TO [facility] ANSWERING SERVICE, SPOKE TO MARCUS. REQUESTED SURGICAL CONSULT IN THE AM FOR PLACEMENT OF PLEUREX CATHETER RELATED TO RECURRENT MALIGNANT RIGHT PLEURAL EFFUSION.
--- NOTE | 2021-07-06 04:35 | NUR ---
SHIFT SUMMARY PT NPO AFTER 0400 FOR SURGICAL CONSULT, POSSIBLE PROCEDURE TODAY FOR PLEUREX CATHETER INSERTION. PT SLEPT WELL AFTER 0200, WITH 4LPM OXYGEN VIA NC. BED IN LOWEST POSITION, CALL LIGHT WITHIN REACH.
[2021-07-06 05:25] LABS: BASOPHILS ABSOLUTE AUTO 0.09 K/mm3 (0.00-0.23); BASOPHILS PERCENT AUTO 1 % (0-2); EOSINOPHILS ABSOLUTE AUTO 0.19 K/mm3 (0.00-0.68); EOSINOPHILS PERCENT AUTO 1 % (0-6); Hematocrit 49.4 % (37.0-53.0); Hemoglobin 15.6 g/dL (13.5-17.5); IMMATURE GRAN ABSOLUTE AUTO 0.31 K/mm3 (0.00-0.10); IMMATURE GRAN PERCENT AUTO 2 % (0-1); LYMPHOCYTES ABSOLUTE AUTO 3.03 K/mm3 (0.84-5.20); LYMPHOCYTES PERCENT AUTO 18 % (21-46); MONOCYTES ABSOLUTE AUTO 1.63 K/mm3 (0.16-1.47); MONOCYTES PERCENT AUTO 10 % (4-13); Mean Corpuscular HGB 26.1 pg (26.0-34.0); Mean Corpuscular HGB Conc 31.6 g/dL (31.5-36.5); Mean Corpuscular Volume 83 fL (80-100); Mean Platelet Volume 10.8 fL (9.1-12.4); NEUTROPHILS ABSOLUTE AUTO 11.25 K/mm3 (1.96-9.15); NEUTROPHILS PERCENT AUTO 68 % (41-73); Platelet Count 475 K/mm3 (150-400); RDW Coefficient Variation 15.2 % (11.7-14.2); Red Blood Cell Count 5.97 M/mm3 (4.30-5.90)
[2021-07-06 06:07] LABS: Bun/Creatinine Ratio 16.9 (12.0-20.0); Calcium, Blood 10.9 mg/dL (8.5-10.1); Creatinine, Blood 1.24 mg/dL (0.60-1.20); Potassium, Blood 4.4 mmol/L (3.5-5.5)
--- NOTE | 2021-07-06 06:12 | NUR ---
REMOVAL OF INSULIN PUMP RN NOTIFIED PT THAT HE WAS NOT ABLE TO USE HIS OWN INSULIN PUMP WHILE ADMITTED AT [facility]. PT CONSENTED, AND DISCONNECTED HIS [employer] PUMP. HE PLACED HIS PUMP IN HIS RED DIABETIC SUPPLY BAG ON THE BEDSIDE TABLE. THE SC INSERTION SITE REMAINS IN HIS LLQ.
--- NOTE | 2021-07-06 15:31 | NUR ---
07/06/21 1531 Elsie Lindsey PLEURX CATH PLACED 1550CC OF FLUID DRAINED OFF.
--- NOTE | 2021-07-06 19:02 | NUR ---
PT AO X 4,PT IS ON 4L NC,PT ON TELE RUNNING SINUS RYTHM.PT HAD A RIGHT PLEURAL CATHETER IN ATTACHED TO HIS CHEST,PT HAVE HIS OWN INSULIN PUMP STATED HE WILL GIVE HIMSELF COVERAGE,PT BROUGHT MORE INSULIN FOR PT THIS PM. PT BLOOD SUGARS BEEN IN THE 400S SINCE THIS PM,PT REFUSED COVERAGE FOR HIGH BLOOD SUGAR.PT IS INDEPENDENT USING URENAL,PT IN BED,CALL LIGHT IN REACH,GAVE REPORT TO ONGOING RN.
--- NOTE | 2021-07-07 03:23 | NUR ---
SHIFT SUMMARY PATIENT HAD NO ACUTE CHANGES OBSERVED. AXOX 3 AND SBA TO BSC. USES URINAL AT BEDSIDE. PATIENT INSULIN PUMP APPROVED FOR PERSONAL USE BY DR MURDOCK, DR DUONG, AND GALLERY OR MUSEUM CURATOR GWEN FRANK. CBG Q6 CHECK 309. ON 4L O2 NC. DENIES PAIN, SOB, AND N/V. VSS/AFEBRILE. RIGHT PLEURAL CATHETER ATTACHED TO CHEST. COOPERATIVE WITH CARE. CALL LIGHT IN REACH. BED IN LOWEST POSITION. WILL CONTINUE TO MONITOR UNTIL DAY SHIFT NURSE ASSUMES CARE.
[2021-07-07] MEDS ORDERED: Prednisone10 MG PO (13:52)
--- NOTE | 2021-07-07 14:25 | NUR ---
PT AO X 4,PT C/O PAIN,MEDICATED PER EMAR.BOTH PT AND GOT TEACHNG ON HOW TO DRAIN THE PLEURAL CATHETER ATTACHED TO HIS CHEST.PT DISCHARGE HOME WILL ALL THE BILONGINGS AND INSTRUCTIONS TO FOLLOW UP WITH PROVIDER AND THE CATHETER.
== END 2021-07-07 14:18 | disposition home or self-care (01) | DRG 180 ==
LOC: ER 17:11 → MEDS 17:12
PROVIDERS: Emergency Medicine; Physician Assistant; Surgery; ADMIT Internal Medicine
PROC: 0W9930Z Drainage of Right Pleural Cavity with Drainage Device, Percutaneous Approach (ICD-10-PCS; principal; 2021-07-06 14:45)
DX: C78.02 Secondary malignant neoplasm of left lung (principal); J96.21 Acute and chronic respiratory failure with hypoxia; J91.0 Malignant pleural effusion; C79.51 Secondary malignant neoplasm of bone; C77.9 Secondary and unspecified malignant neoplasm of lymph node, unspecified; E27.3 Drug-induced adrenocortical insufficiency; Z66 Do not resuscitate; Z20.822 Contact with and (suspected) exposure to COVID-19; C78.01 Secondary malignant neoplasm of right lung; I12.9 Hypertensive chronic kidney disease with stage 1 through stage 4 chronic kidney disease, or unspecified chronic kidney disease; N18.30 Chronic kidney disease, stage 3 unspecified; K21.9 Gastro-esophageal reflux disease without esophagitis; D72.829 Elevated white blood cell count, unspecified; E78.5 Hyperlipidemia, unspecified; E10.22 Type 1 diabetes mellitus with diabetic chronic kidney disease; E10.42 Type 1 diabetes mellitus with diabetic polyneuropathy; F32.9 Major depressive disorder, single episode, unspecified; Z79.4 Long term (current) use of insulin; Z79.01 Long term (current) use of anticoagulants; Z79.52 Long term (current) use of systemic steroids; Z79.899 Other long term (current) drug therapy; Z88.1 Allergy status to other antibiotic agents; Z98.890 Other specified postprocedural states; Z85.528 Personal history of other malignant neoplasm of kidney; Z90.5 Acquired absence of kidney; Z87.891 Personal history of nicotine dependence
CPT/HCPCS: 36415; 71046; 80048; 80053; 82947; 83690; 83880; 84484; 85025; 93005; 93010; 96374; 99285-25; A9270; C1729; G0378; J0690; J1100; J2370; J2405; J2704; J3010; J7120; J7512; U0004